=== PATIENT | female | born 1970 | race Caucasian/White ===

== ENCOUNTER 2016-10-07 10:53 | Day surgery (SDC) | payer BC, MEDICAID ==
[~2016-10-07 10:53] MED LIST: Dexamethasone 4 MG/ML SDV ONE; Midazolam 1 MG/ML 2 ML SDV ONE; Neostigmine Methylsulfate 1 MG/ML 5 ML Syringe ONE; Ondansetron 4 MG/2 ML SDV ONE; Propofol 200 MG/20 ML SDV ONE; Rocuronium 50 MG/5 ML Vial ONE; Succinylcholine/Normal Saline 200 MG/10 ML Syringe ONE; fentaNYL 250 MCG/5 ML SDV ONE
[2016-10-07] MEDS ORDERED: Lidocaine 1% 50 ML MDV ONE (11:31)
[2016-10-07] MEDS ORDERED: Lactated Ringers 1,000 ML IV SCH (12:15)
--- NOTE | 2016-10-07 13:32 | PCM.PRNOTE ---
- Free Text/Narrative Note: procedure 1. D&C 2. cervical block preop and post op endometrial thickening Attending Dr. Sheridan Findings Anteverted uterus about 8 weeks mild prolapse, cystocele EMC to pathology EBL minimal complications none Description Patient was placed in dorsal lithotomy after sedation she was preped and draped in sterile fashion, sterile speculum introduced and cervix visualized, cervical block performed with 1% lidocaine, cervical dilation was performed using the cervical dilators successfully, to note that the rectal small dilator was use at the beginning due to cervical stenosis, then sharp curettage performed no complications, adequate hemostasis patient transfered to
[2016-10-07] MEDS ORDERED: Silver Nitrate Applicator Each TOP ONE (14:00)
[2016-10-07 14:41] VITALS: BP 114/66
== END 2016-10-07 14:55 | disposition home or self-care (01) ==
LOC: JP.SDS 10:53
PROVIDERS: ATTEND Obstetrics & Gynecology
DX: N85.00 Endometrial hyperplasia, unspecified (principal); N83.202 Unspecified ovarian cyst, left side; Z80.41 Family history of malignant neoplasm of ovary; Z80.49 Family history of malignant neoplasm of other genital organs; Z90.49 Acquired absence of other specified parts of digestive tract; Z98.51 Tubal ligation status; Z98.890 Other specified postprocedural states; Z79.899 Other long term (current) drug therapy; Z87.891 Personal history of nicotine dependence; Z88.8 Allergy status to other drugs, medicaments and biological substances; Z88.2 Allergy status to sulfonamides; Z91.048 Other nonmedicinal substance allergy status
CPT/HCPCS: 36415; 58120; 85027; 86850; 86900; 86901; J2250; J2704; J3010; J7120; 88305; J1100; J2405

== ENCOUNTER 2016-12-09 04:37 | Emergency (ER) | payer BC, MEDICAID ==
[2016-12-09 04:52] VITALS: BP 117/66
[2016-12-09] MEDS ORDERED: Ketorolac 60 MG/2 ML SDV IM ONE (05:32)
[2016-12-09] MEDS ORDERED: Ondansetron 4 MG Tab.DIS PO ONE (05:32)
--- NOTE | 2016-12-09 06:07 | EDM.PDOC ---
<Jony Dang - Last Filed: 12/09/16 06:59> ED HPI GENERAL MEDICAL PROBLEM - General Chief Complaint: General Stated Complaint: NOT FEELING WELL Time Seen by Provider: 12/09/16 05:00 Source of Information: Reports: Patient History Limitations: Reports: No Limitations - History of Present Illness INITIAL COMMENTS - FREE TEXT/NARRATIVE: 46-year-old female who is 4 days postoperative from a total hysterectomy done laparoscopically was doing well the first 24-36 hours after surgery but has had several episodes of discomfort, malaise, lightheadedness, and this morning woke up at 3:30 very nauseous and having increased pelvic back and leg pain. She was just feeling "awful" with some chills so decided to come in. No shortness of breath. Her chief complaint was aching all over, particularly in her lower abdomen buttocks and back of her legs. No vomiting. Onset: Other (Waxing and waning) Quality: Reports: Ache Severity: Moderate Associated Symptoms: Reports: Fever/Chills, Malaise, Nausea/Vomiting, Other ( Dizziness with standing). Denies: Chest Pain, Cough, Diaphoresis, Shortness of Breath Generalized Pain Score (Numeric/FACES): 4 - Related Data Allergies Allergy/AdvReac Type Severity Reaction Status Date / Time azithromycin [From Zithromax] Allergy Cannot Verified 12/09/16 04:52 Remember erythromycin base Allergy Vomiting Verified 12/09/16 04:52 Sulfa (Sulfonamide Allergy Vaginitis Verified 12/09/16 04:52 Antibiotics) many outside allergies Allergy Difficulty Uncoded 12/09/16 04:52 Breathing Home Meds: Home Meds Fluconazole in NaCl,Iso-Osm [Fluconazole-Ns 200 mg/100 ml] 1 sprays INH BID 11/25 [History] Montelukast [Singulair] 10 mg CHEW BEDTIME 05/19/14 [History] Pseudoephedrine [Sudafed 12 Hour] 120 mg PO Q12H 05/19/14 [History] Cetirizine HCl [Zyrtec] 10 mg PO DAILY 06/06/14 [History] Multivitamin [Multi-Vitamin Daily] 1 tab PO DAILY 06/06/14 [History] Hydrocodone/Acetaminophen [Hydrocodon-Acetaminophen 5-325] 1 tab PO Q4H PRN 07/30 [History] Omeprazole 20 mg PO DAILY 12/14/15 [History] Ibuprofen [Motrin] 800 mg PO Q6H PRN 10/05/16 [History] Tretinoin [Retin-A] 1 applic TP BEDTIME 10/05/16 [History] Past Medical History - Past Health History Medical/Surgical History: Denies Medical/Surgical History HEENT History: Reports: Impaired Vision, Sinusitis, Other (See Below) Other HEENT History: environmental--seeds,grasses trees pets etc Respiratory History: Reports: Other (See Below) Other Respiratory History: Environmental allergies Gastrointestinal History: Reports: GERD ANTHROPOLOGIST History: Reports: , Other (See Below) Other OB/BYN History: thickened endometrial lining. ovarian cyst Neurological History: Reports: Migraines Dermatologic History: Reports: Other (See Below) Other Dermatologic History: mole removed chest and back - Infectious Disease History Infectious Disease History: Reports: Chicken Pox, Measles - Past Surgical History HEENT Surgical History: Reports: Oral Surgery, Tonsillectomy Female Surgical History: Reports: Hysterectomy, Oophorectomy Social & Family History - Family History OBGYN: Reports: Other (See Below) Other OBGYN Family History: ovaarian ca- mother - Tobacco Use Smoking Status *Q: Never Smoker Years of Tobacco use: 5 Packs/Tins Daily: 0.5 Used Tobacco, but Quit: No Second Hand Smoke Exposure: No - Caffeine Use Caffeine Use: Reports: Coffee, Soda, Tea - Alcohol Use Days Per Week of Alcohol Use: 0 Number of Drinks Per Day: 1 Total Drinks Per Week: 0 - Recreational Drug Use Recreational Drug Use: No ED ROS GENERAL - Review of Systems Review Of Systems: See Below Constitutional: Reports: Fever, Chills, Malaise HEENT: Reports: No Symptoms Respiratory: Reports: No Symptoms Cardiovascular: Reports: Lightheadedness GI/Abdominal: Reports: Abdominal Pain, Nausea. Denies: Diarrhea, Vomiting : Reports: Other (Pain intermittently radiates to the vagina) Musculoskeletal: Reports: Muscle Pain Skin: Reports: No Symptoms Neurological: Reports: Dizziness. Denies: Headache Psychiatric: Reports: No Symptoms ED EXAM, GENERAL - Physical Exam Exam: See Below Exam Limited By: No Limitations General Appearance: Alert, Anxious, Mild Distress (Looks very uncomfortable) Eye Exam: Bilateral Eye: EOMI Respiratory/Chest: No Respiratory Distress Cardiovascular: Regular Rate, Rhythm GI/Abdominal: Normal Bowel Sounds, Soft, Tender (Even light palpation causes significant tenderness across her lower abdomen) Extremities: No: Pedal Edema Neurological: Alert, Oriented, No Motor/Sensory Deficits Psychiatric: Normal Affect, Normal Mood Skin Exam: Warm, Dry, Other (Incisions look excellent) Course - Vital Signs Last Recorded V/S: Last Vital Signs Temp 37.6 C 12/09/16 06:02 Pulse 104 H 12/09/16 04:51 Resp 16 12/09/16 04:51 BP 117/66 12/09/16 04:51 Pulse Ox 0 L 12/09/16 04:51 - Orders/Labs/Meds Orders: Active Orders 24 hr Category Date Time Status Abdomen Pelvis w Cont [CT] Stat Exams 12/09/16 06:22 Taken CULTURE URINE [RM] Stat Lab 12/09/16 10:03 Uncollected Iohexol [Omnipaque-300] Med 12/09/16 07:15 Active 10 ml PO . DIRECTED Medication Orders Iohexol (Omnipaque-300) 10 ml PO . DIRECTED PATT Last Admin: 12/09/16 07:12 Dose: 10 ml Labs: Laboratory Tests 12/09/16 12/09/16 12/09/16 Range/Units 05:56 05:56 09:45 WBC 22.7 H (4.5-11.0) K/uL RBC 4.55 (3.30-5.50) M/uL Hgb 13.8 (12.0-15.0) g/dL Hct 41.5 (36.0-48.0) % MCV 91 (80-98) fL MCH 30 (27-31) pg MCHC 33 (32-36) % Plt Count 269 (150-400) K/uL Neut % (Auto) 86 H (36-66) % Lymph % (Auto) 6 L (24-44) % [place] % (Auto) 8 H (2-6) % Eos % (Auto) 1 L (2-4) % Baso % (Auto) 0 (0-1) % Sodium 139 L (140-148) mmol/L Potassium 4.5 (3.6-5.2) mmol/L Chloride 104 (100-108) mmol/L Carbon Dioxide 31 (21-32) mmol/L Anion Gap 8.5 (5.0-14.0) mmol/L BUN 16 (7-18) mg/dL Creatinine 1.0 (0.6-1.0) mg/dL Est Cr Clr Drug Dosing 65.22 mL/min Estimated GFR (MDRD) 60 (>60) Glucose 106 (74-106) mg/dL Calcium 8.9 (8.5-10.1) mg/dL Urine Color Yellow Urine Appearance Clear Urine pH 7.0 (4.5-8.0) Ur Specific [place] 1.005 L (1.008-1.030) Urine Protein Negative (NEGATIVE) mg/dL Urine Glucose (UA) Normal (NEGATIVE) mg/dL Urine Ketones Negative (NEGATIVE) mg/dL Urine Occult Blood Moderate (NEGATIVE) Urine Nitrite Negative (NEGATIVE) Urine Bilirubin Negative (NEGATIVE) Urine Urobilinogen Normal (NORMAL) mg/dL Ur Leukocyte Esterase Moderate (NEGATIVE) Urine RBC 0-5 (0-5) Urine WBC 5-10 H (0-5) Ur Epithelial Cells Few Amorphous Sediment Not seen Urine Bacteria Rare Urine Mucus Not seen Meds: Medications Generic Name Dose Route Start Last Admin Trade Name Freq PRN Reason Stop Dose Admin Iohexol 10 ml 12/09/16 07:15 12/09/16 07:12 Omnipaque-300 PO 10 ml . DIRECTED PATT Administration Discontinued Medications Generic Name Dose Route Start Last Admin Trade Name Freq PRN Reason Stop Dose Admin Sodium Chloride 70 mls @ 3 mls/sec 12/09/16 06:40 12/09/16 08:23 Normal Saline IV 12/09/16 06:41 3 mls/sec ASDIRECTED ONE Administration Ciprofloxacin/Dextrose 400 mg/ 200 mls @ 200 mls/hr 12/09/16 06:54 12/09/16 07:13 Premix IV 12/09/16 07:53 200 mls/hr ONETIME ONE Administration Metronidazole 500 mg/ Premix 100 mls @ 100 mls/hr 12/09/16 06:55 12/09/16 08: 28 IV 12/09/16 07:54 100 mls/hr ONETIME ONE Administration Iohexol 30 ml 12/09/16 06:55 12/09/16 09:28 Omnipaque PO 12/09/16 06:56 Not Given ONETIME ONE Iopamidol 100 ml 12/09/16 06:40 12/09/16 08:21 Isovue-300 (61%) IV 12/09/16 06:41 100 ml . DIRECTED PRN Administration RADIOLOGY EXAM Ketorolac Tromethamine 60 mg 12/09/16 05:32 12/09/16 05:38 Toradol IM 12/09/16 05:33 60 mg ONETIME ONE Administration Ondansetron HCl 4 mg 12/09/16 05:32 12/09/16 05:39 Zofran Odt PO 12/09/16 05:33 4 mg ONETIME ONE Administration Sodium Chloride 10 ml 12/09/16 06:40 12/09/16 08:23 Saline Flush FLUSH 12/09/16 06:41 10 ml . DIRECTED PRN Administration [id number] EXAM - Re-Assessments/Exams Free Text/Narrative Re-Assessment/Exam: 12/09/16 06:06 Patient was given 60 mg of Toradol IM and 4 mg of sublingual Zofran. A flat and upright x-ray of the abdomen along with CBC and BMP were obtained. After returning from x-ray the patient again felt chilled so a temperature was retaken and it was 99.6. 12/09/16 06:36 White blood count cell count was 22,700, hemoglobin normal, chemistry profile normal. Her case was discussed with her surgeon, and a CT of the abdomen with IV contrast was recommended. 12/09/16 06:59 Dr. Barrow, the patient's surgeon called and requested oral contrast and starting IV Cipro and IV Flagyl. These were ordered and the care was turned over to Dr. Salazar. Departure - Departure Disposition: Home, Self-Care 01 Clinical Impression: Status post hysterectomy with oophorectomy, Elevated WBC count - Discharge Information Forms: ED Department Discharge Care Plan Goals: keep appt for follow up, cipro 500mg bid, flagyl 500m tid. rtc if increased problems. Push fluids, will notify of urine culture. - My Orders Last 24 Hours: My Active Orders 12/09/16 10:03 CULTURE URINE [RM] Stat - Assessment/Plan Last 24 Hours: My Active Orders 12/09/16 10:03 CULTURE URINE [RM] Stat <Kendra Salazar - Last Filed: 12/09/16 10:07> Course - Re-Assessments/Exams Free Text/Narrative Re-Assessment/Exam: 12/09/16 10:03 cat scan was neg for acute findings. Her urine had some wbcs but not alot of bacteria. A culture was set up. Her [employer] teacher saw the pt and wanted her to be on cipro and flagyl. He will see her Wednesday. Departure - Departure Time of Disposition: 10:05 Condition: Fair
[2016-12-09] MEDS ORDERED: Sodium Chloride 0.9% 10 ML Syringe FLUSH PRN (06:40)
[2016-12-09] MEDS ORDERED: Iopamidol 612 MG/ML 100 ML Bottle IV PRN (06:40)
[2016-12-09] MEDS ORDERED: Ciprofloxacin in D5W 400 MG in Premix Bag 1 BAG IV ONE ×2 (06:54)
[2016-12-09] MEDS ORDERED: Iohexol 300 MG/ML 30 ML Bottle PO ONE (06:55)
[2016-12-09] MEDS ORDERED: metroNIDAZOLE/Normal Saline 500 MG in Premix Bag 1 BAG IV ONE (06:55)
[2016-12-09] MEDS ORDERED: Iohexol 647 MG/ML 10 ML SDV PO SCH (07:15)
--- NOTE | 2016-12-09 09:13 | CR ---
Abdomen 2V AP Flat Upright HISTORY: Postop pain, fever. COMPARISON: None FINDINGS: The bowel gas pattern nonobstructive. Vascular calcification left hemipelvis. No free air. Scattered stool throughout nondilated colon. Impression: No evidence for acute abdominal process.
--- NOTE | 2016-12-09 11:20 | EDM.PDOC ---
ED HPI GENERAL MEDICAL PROBLEM - General Chief Complaint: General Stated Complaint: NOT FEELING WELL Time Seen by Provider: 12/09/16 10:00 Source of Information: Reports: Patient History Limitations: Reports: No Limitations - History of Present Illness INITIAL COMMENTS - FREE TEXT/NARRATIVE: 46-year-old female who is 4 days postoperative from a total hysterectomy done laparoscopically was doing well the first 24-36 hours after surgery but has had several episodes of discomfort, malaise, lightheadedness, and this morning woke up at 3:30 very nauseous and having increased pelvic back and leg pain. She was just feeling "awful" with some chills so decided to come in. No shortness of breath. Her chief complaint was aching all over, particularly in her lower abdomen buttocks and back of her legs. No vomiting. Onset: Today (at 2 am), Other (Waxing and waning) Duration: Day(s): (1 day), Constant Location: Reports: Abdomen Quality: Reports: Ache Severity: Moderate Improves with: Reports: None Worsens with: Reports: None Context: Reports: Lifting Associated Symptoms: Reports: Fever/Chills, Malaise, Nausea/Vomiting, Other ( Dizziness with standing). Denies: Chest Pain, Cough, Diaphoresis, Shortness of Breath Treatments SUPERVISOR BRINE: Reports: Acetaminophen Generalized Pain Score (Numeric/FACES): 2 - Related Data Allergies Allergy/AdvReac Type Severity Reaction Status Date / Time azithromycin [From Zithromax] Allergy Cannot Verified 12/09/16 04:52 Remember erythromycin base Allergy Vomiting Verified 12/09/16 04:52 Sulfa (Sulfonamide Allergy Vaginitis Verified 12/09/16 04:52 Antibiotics) many outside allergies Allergy Difficulty Uncoded 12/09/16 04:52 Breathing Home Meds: Home Meds Fluconazole in NaCl,Iso-Osm [Fluconazole-Ns 200 mg/100 ml] 1 sprays INH BID 11/25 [History] Montelukast [Singulair] 10 mg CHEW BEDTIME 05/19/14 [History] Pseudoephedrine [Sudafed 12 Hour] 120 mg PO Q12H 05/19/14 [History] Cetirizine HCl [Zyrtec] 10 mg PO DAILY 06/06/14 [History] Multivitamin [Multi-Vitamin Daily] 1 tab PO DAILY 06/06/14 [History] Hydrocodone/Acetaminophen [Hydrocodon-Acetaminophen 5-325] 1 tab PO Q4H PRN 07/30 [History] Omeprazole 20 mg PO DAILY 12/14/15 [History] Ibuprofen [Motrin] 800 mg PO Q6H PRN 10/05/16 [History] Tretinoin [Retin-A] 1 applic TP BEDTIME 10/05/16 [History] Past Medical History - Past Health History Medical/Surgical History: Denies Medical/Surgical History HEENT History: Reports: Impaired Vision, Sinusitis, Other (See Below) Other HEENT History: environmental--seeds,grasses trees pets etc Respiratory History: Reports: Other (See Below) Other Respiratory History: Environmental allergies Gastrointestinal History: Reports: GERD METER INSPECTOR History: Reports: , Other (See Below) Other OB/BYN History: thickened endometrial lining. ovarian cyst Neurological History: Reports: Migraines Dermatologic History: Reports: Other (See Below) Other Dermatologic History: mole removed chest and back - Infectious Disease History Infectious Disease History: Reports: Chicken Pox, Measles - Past Surgical History HEENT Surgical History: Reports: Oral Surgery, Tonsillectomy Female Surgical History: Reports: Hysterectomy, Oophorectomy Social & Family History - Family History OBGYN: Reports: Other (See Below) Other OBGYN Family History: ovaarian ca- mother - Tobacco Use Smoking Status *Q: Never Smoker Years of Tobacco use: 5 Packs/Tins Daily: 0.5 Used Tobacco, but Quit: No Second Hand Smoke Exposure: No - Caffeine Use Caffeine Use: Reports: Coffee, Soda, Tea - Alcohol Use Days Per Week of Alcohol Use: 0 Number of Drinks Per Day: 1 Total Drinks Per Week: 0 - Recreational Drug Use Recreational Drug Use: No ED ROS GENERAL - Review of Systems Review Of Systems: See Below ED EXAM, GENERAL - Physical Exam Exam: See Below Free Text/Narrative:: 46-year-old female who is 4 days postoperative from a total hysterectomy done laparoscopically was doing well the first 24-36 hours after surgery but has had several episodes of discomfort, malaise, lightheadedness, and this morning woke up at 3:30 very nauseous and having increased pelvic back and leg pain. She was just feeling "awful" with some chills so decided to come in. No shortness of breath. Her chief complaint was aching all over, particularly in her lower abdomen buttocks and back of her legs. No vomiting. Exam Limited By: No Limitations General Appearance: Alert, Anxious, Mild Distress (Looks very uncomfortable) Respiratory/Chest: No Respiratory Distress Cardiovascular: Regular Rate, Rhythm GI/Abdominal: Normal Bowel Sounds, Soft, Tender (Even light palpation causes significant tenderness across her lower abdomen), Other (at my examination patient resting comfortable in no distress, well healed incisions, no rebound ) Extremities: No: Pedal Edema Neurological: Alert, Oriented, No Motor/Sensory Deficits Psychiatric: Normal Affect, Normal Mood Skin Exam: Warm, Dry, Other (Incisions look excellent) Lymphatic: No Adenopathy Course - Vital Signs Last Recorded V/S: Last Vital Signs Temp 37.6 C 12/09/16 06:02 Pulse 104 H 12/09/16 04:51 Resp 16 12/09/16 04:51 BP 117/66 12/09/16 04:51 Pulse Ox 0 L 12/09/16 04:51 - Orders/Labs/Meds Labs: Laboratory Tests 12/09/16 12/09/16 12/09/16 Range/Units 05:56 05:56 09:45 WBC 22.7 H (4.5-11.0) K/uL RBC 4.55 (3.30-5.50) M/uL Hgb 13.8 (12.0-15.0) g/dL Hct 41.5 (36.0-48.0) % MCV 91 (80-98) fL MCH 30 (27-31) pg MCHC 33 (32-36) % Plt Count 269 (150-400) K/uL Neut % (Auto) 86 H (36-66) % Lymph % (Auto) 6 L (24-44) % [place] % (Auto) 8 H (2-6) % Eos % (Auto) 1 L (2-4) % Baso % (Auto) 0 (0-1) % Sodium 139 L (140-148) mmol/L Potassium 4.5 (3.6-5.2) mmol/L Chloride 104 (100-108) mmol/L Carbon Dioxide 31 (21-32) mmol/L Anion Gap 8.5 (5.0-14.0) mmol/L BUN 16 (7-18) mg/dL Creatinine 1.0 (0.6-1.0) mg/dL Est Cr Clr Drug Dosing 65.22 mL/min Estimated GFR (MDRD) 60 (>60) Glucose 106 (74-106) mg/dL Calcium 8.9 (8.5-10.1) mg/dL Urine Color Yellow Urine Appearance Clear Urine pH 7.0 (4.5-8.0) Ur Specific [place] 1.005 L (1.008-1.030) Urine Protein Negative (NEGATIVE) mg/dL Urine Glucose (UA) Normal (NEGATIVE) mg/dL Urine Ketones Negative (NEGATIVE) mg/dL Urine Occult Blood Moderate (NEGATIVE) Urine Nitrite Negative (NEGATIVE) Urine Bilirubin Negative (NEGATIVE) Urine Urobilinogen Normal (NORMAL) mg/dL Ur Leukocyte Esterase Moderate (NEGATIVE) Urine RBC 0-5 (0-5) Urine WBC 5-10 H (0-5) Ur Epithelial Cells Few Amorphous Sediment Not seen Urine Bacteria Rare Urine Mucus Not seen Meds: Medications Discontinued Medications Generic Name Dose Route Start Last Admin Trade Name Freq PRN Reason Stop Dose Admin Sodium Chloride 70 mls @ 3 mls/sec 12/09/16 06:40 12/09/16 08:23 Normal Saline IV 12/09/16 06:41 3 mls/sec ASDIRECTED ONE Administration Ciprofloxacin/Dextrose 400 mg/ 200 mls @ 200 mls/hr 12/09/16 06:54 12/09/16 07:13 Premix IV 12/09/16 07:53 200 mls/hr ONETIME ONE Administration Metronidazole 500 mg/ Premix 100 mls @ 100 mls/hr 12/09/16 06:55 12/09/16 08: 28 IV 12/09/16 07:54 100 mls/hr ONETIME ONE Administration Iohexol 30 ml 12/09/16 06:55 12/09/16 09:28 Omnipaque PO 12/09/16 06:56 Not Given ONETIME ONE Iohexol 10 ml 12/09/16 07:15 12/09/16 07:12 Omnipaque-300 PO 10 ml . DIRECTED PATT Administration Iopamidol 100 ml 12/09/16 06:40 12/09/16 08:21 Isovue-300 (61%) IV 12/09/16 06:41 100 ml . DIRECTED PRN Administration RADIOLOGY EXAM Ketorolac Tromethamine 60 mg 12/09/16 05:32 12/09/16 05:38 Toradol IM 12/09/16 05:33 60 mg ONETIME ONE Administration Ondansetron HCl 4 mg 12/09/16 05:32 12/09/16 05:39 Zofran Odt PO 12/09/16 05:33 4 mg ONETIME ONE Administration Sodium Chloride 10 ml 12/09/16 06:40 12/09/16 08:23 Saline Flush FLUSH 12/09/16 06:41 10 ml . DIRECTED PRN Administration [id number] EXAM Departure - Departure Time of Disposition: 10:17 Disposition: Home, Self-Care 01 Condition: Fair Clinical Impression: Status post hysterectomy with oophorectomy, Elevated WBC count - Discharge Information Referrals: PCP,None [Primary Care Provider] - Forms: ED Department Discharge Care Plan Goals: keep appt for follow up, cipro 500mg bid, flagyl 500m tid. rtc if increased problems. Push fluids, will notify of urine culture. 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
== END 2016-12-09 10:17 | disposition home or self-care (01) ==
LOC: JP.ED 04:37
DX: G89.18 Other acute postprocedural pain (principal); R10.30 Lower abdominal pain, unspecified; D72.829 Elevated white blood cell count, unspecified; K21.9 Gastro-esophageal reflux disease without esophagitis; G43.909 Migraine, unspecified, not intractable, without status migrainosus; Z90.710 Acquired absence of both cervix and uterus; Z90.721 Acquired absence of ovaries, unilateral; Z79.899 Other long term (current) drug therapy; Z88.2 Allergy status to sulfonamides; Z88.1 Allergy status to other antibiotic agents; Z91.09 Other allergy status, other than to drugs and biological substances
CPT/HCPCS: 36415; 74020; 74177; 80048; 81001; 85025; 87086; 96365; 96368; 96372; 99284; A9270; J0744; J1885; J7030; J7050; Q9967

== ENCOUNTER 2017-09-30 18:23 | Emergency (ER) | payer OTHER, MEDICAID ==
[2017-09-30 18:53] VITALS: BP 138/83
--- NOTE | 2017-09-30 19:16 | EDM.PDOC ---
ED HPI GENERAL MEDICAL PROBLEM - General Chief Complaint: Genitourinary Problem Stated Complaint: BLADDER PAIN AND SPOTTING Time Seen by Provider: 09/30/17 19:00 Source of Information: Reports: Patient History Limitations: Reports: No Limitations - History of Present Illness INITIAL COMMENTS - FREE TEXT/NARRATIVE: 46-year-old female with dysuria and a small amount of blood in her urine for the past hour and a half. She feels a lower abdominal pressure. No fever or chills, no significant back pain. She has a history of a total hysterectomy. Onset: Sudden (Started rather suddenly an hour and a half ago) Severity: Mild Worsens with: Reports: Other (Urinating) Associated Symptoms: Denies: Fever/Chills, Loss of Appetite, Malaise, Nausea/ Vomiting Pelvic Pain Score (Numeric/FACES): 3 - Related Data Allergies Allergy/AdvReac Type Severity Reaction Status Date / Time azithromycin [From Zithromax] Allergy Cannot Verified 12/09/16 04:52 Remember erythromycin base Allergy Vomiting Verified 12/09/16 04:52 Sulfa (Sulfonamide Allergy Vaginitis Verified 12/09/16 04:52 Antibiotics) many outside allergies Allergy Difficulty Uncoded 12/09/16 04:52 Breathing Home Meds: Home Meds Fluconazole in NaCl,Iso-Osm [Fluconazole-Ns 200 mg/100 ml] 1 sprays INH BID 11/25 [History] Montelukast [Singulair] 10 mg CHEW BEDTIME 05/19/14 [History] Pseudoephedrine [Sudafed 12 Hour] 120 mg PO Q12H 05/19/14 [History] Cetirizine HCl [Zyrtec] 10 mg PO DAILY 06/06/14 [History] Multivitamin [Multi-Vitamin Daily] 1 tab PO DAILY 06/06/14 [History] Hydrocodone/Acetaminophen [Hydrocodon-Acetaminophen 5-325] 1 tab PO Q4H PRN 07/30 [History] Omeprazole 20 mg PO DAILY 12/14/15 [History] Ibuprofen [Motrin] 800 mg PO Q6H PRN 10/05/16 [History] Tretinoin [Retin-A] 1 applic TP BEDTIME 10/05/16 [History] Past Medical History - Past Health History Medical/Surgical History: Denies Medical/Surgical History HEENT History: Reports: Impaired Vision, Sinusitis, Other (See Below) Other HEENT History: environmental--seeds,grasses trees pets etc Respiratory History: Reports: Other (See Below) Other Respiratory History: Environmental allergies Gastrointestinal History: Reports: GERD CITRI[employer] LEAD History: Reports: , Other (See Below) Other OB/BYN History: thickened endometrial lining. ovarian cyst Neurological History: Reports: Migraines Dermatologic History: Reports: Other (See Below) Other Dermatologic History: mole removed chest and back - Infectious Disease History Infectious Disease History: Reports: Chicken Pox - Past Surgical History HEENT Surgical History: Reports: Oral Surgery, Tonsillectomy Female Surgical History: Reports: Hysterectomy, Oophorectomy Social & Family History - Family History OBGYN: Reports: Other (See Below) Other OBGYN Family History: ovaarian ca- mother - Tobacco Use Smoking Status *Q: Former Smoker Years of Tobacco use: 5 Packs/Tins Daily: 0.5 Used Tobacco, but Quit: No Second Hand Smoke Exposure: No - Caffeine Use Caffeine Use: Reports: Coffee, Soda, Tea - Alcohol Use Days Per Week of Alcohol Use: 0 Number of Drinks Per Day: 1 Total Drinks Per Week: 0 - Recreational Drug Use Recreational Drug Use: No ED ROS GENERAL - Review of Systems Review Of Systems: See Below Constitutional: Denies: Fever, Chills Respiratory: Denies: Shortness of Breath Cardiovascular: Denies: Chest Pain GI/Abdominal: Reports: Abdominal Pain. Denies: Nausea, Vomiting : Reports: Dysuria, Hematuria, Urgency Skin: Reports: No Symptoms Neurological: Denies: Headache Psychiatric: Reports: No Symptoms ED EXAM, RENAL/ - Physical Exam Exam: See Below Exam Limited By: No Limitations General Appearance: Alert, No Apparent Distress Respiratory/Chest: No Respiratory Distress GI/Abdominal: Tender (Does react with tenderness to palpation across the lower abdomen. No focal tenderness or guarding.) Course - Vital Signs Last Recorded V/S: Last Vital Signs Temp 97.7 F 09/30/17 18:51 Pulse 108 H 09/30/17 18:51 Resp 16 09/30/17 18:51 BP 138/83 09/30/17 18:51 Pulse Ox 97 09/30/17 18:51 - Orders/Labs/Meds Orders: Active Orders 24 hr Category Date Time Status CULTURE URINE [RM] Stat Lab 09/30/17 19:30 Received UA W/MICROSCOPIC [URIN] Urgent Lab 09/30/17 19:24 Ordered Labs: Laboratory Tests 09/30/17 Range/Units 19:24 Urine Color Yellow Urine Appearance Cloudy Urine pH 5.0 (4.5-8.0) Ur Specific [place] 1.030 (1.008-1.030) Urine Protein 30 H (NEGATIVE) mg/dL Urine Glucose (UA) Normal (NEGATIVE) mg/dL Urine Ketones Negative (NEGATIVE) mg/dL Urine Occult Blood Large (NEGATIVE) Urine Nitrite Negative (NEGATIVE) Urine Bilirubin Negative (NEGATIVE) Urine Urobilinogen Normal (NORMAL) mg/dL Ur Leukocyte Esterase Large (NEGATIVE) Urine RBC Semi-packed H (0-5) Urine WBC Semi-packed H (0-5) Ur Epithelial Cells Few Amorphous Sediment Not seen Urine Bacteria Many Urine Mucus Not seen - Re-Assessments/Exams Free Text/Narrative Re-Assessment/Exam: 09/30/17 19:16 A UA was obtained. 09/30/17 19:55 UA is strongly positive with many bacteria, packed WBCs and RBCs. A urine culture was initiated and the patient was started on Cipro 500 mg twice daily for 5 days, and can return if worsening despite treatment. Departure - Departure Time of Disposition: 20:10 Disposition: Home, Self-Care 01 Condition: Good Clinical Impression: UTI, Urinary tract infectious disease - Discharge Information Instructions: Urinary Tract Infection, Adult, [id number] Referrals: PCP,None [Primary Care Provider] - Forms: ED Department Discharge Care Plan Goals: Take antibiotic twice daily for the next 5 days, drink lots of fluids and increase activity as tolerated. Return if worsening despite treatment. - My Orders Last 24 Hours: My Active Orders 09/30/17 19:24 UA W/MICROSCOPIC [URIN] Urgent 09/30/17 19:30 CULTURE URINE [RM] Stat - Assessment/Plan Last 24 Hours: My Active Orders 09/30/17 19:24 UA W/MICROSCOPIC [URIN] Urgent 09/30/17 19:30 CULTURE URINE [RM] Stat
== END 2017-09-30 20:11 | disposition home or self-care (01) ==
LOC: JP.ED 18:23
DX: N39.0 Urinary tract infection, site not specified (principal); Z88.1 Allergy status to other antibiotic agents; Z88.2 Allergy status to sulfonamides; Z79.899 Other long term (current) drug therapy; Z87.891 Personal history of nicotine dependence
CPT/HCPCS: 81001; 87086; 99284

== ENCOUNTER 2018-10-08 19:52 | Emergency (ER) | payer OTHER, MEDICAID ==
--- NOTE | 2018-10-08 20:44 | EDM.PDOC ---
ED HPI GENERAL MEDICAL PROBLEM - General Chief Complaint: Genitourinary Problem Stated Complaint: BLADDER INFECTION Time Seen by Provider: 10/08/18 20:01 Source of Information: Reports: Patient History Limitations: Reports: No Limitations - History of Present Illness INITIAL COMMENTS - FREE TEXT/NARRATIVE: Chief complaint: bladder infection This is a 47 year old female present to ER with concerns of bladder infection. She reports woke up this morning, had a low back pain, thought she may of slept wrong, then at the day progressed develops bladder spasms, pain and frequency. Overall just not feeling well. Similar to previous bladder infections denies any fever, chills, nausea, vomiting, diarrhea or rash. past history of recurrent bladder infections. - Related Data Allergies Allergy/AdvReac Type Severity Reaction Status Date / Time azithromycin [From Zithromax] Allergy Cannot Verified 01/07/18 21:53 Remember erythromycin base Allergy Vomiting Verified 01/07/18 21:53 Sulfa (Sulfonamide Allergy Vaginitis Verified 01/07/18 21:53 Antibiotics) many outside allergies Allergy Difficulty Uncoded 01/07/18 21:53 Breathing Home Meds: Home Meds Fluconazole in NaCl,Iso-Osm [Fluconazole-Ns 200 mg/100 ml] 1 sprays INH BID 11/25 [History] Montelukast [Singulair] 10 mg CHEW BEDTIME 05/19/14 [History] Pseudoephedrine [Sudafed 12 Hour] 120 mg PO Q12H 05/19/14 [History] Cetirizine HCl [Zyrtec] 10 mg PO DAILY 06/06/14 [History] Multivitamin [Multi-Vitamin Daily] 1 tab PO DAILY 06/06/14 [History] Omeprazole 20 mg PO DAILY 12/14/15 [History] Tretinoin [Retin-A] 1 applic TP BEDTIME 10/05/16 [History] Past Medical History - Past Health History Medical/Surgical History: Denies Medical/Surgical History HEENT History: Reports: Impaired Vision, Sinusitis, Other (See Below) Other HEENT History: environmental--seeds,grasses trees pets etc Respiratory History: Reports: Other (See Below) Other Respiratory History: Environmental allergies Gastrointestinal History: Reports: GERD Genitourinary History: Reports: UTI, Recurrent 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 ovarian cyst Neurological History: Reports: Migraines Dermatologic History: Reports: Other (See Below) Other Dermatologic History: mole removed chest and back - Infectious Disease History Infectious Disease History: Reports: Chicken Pox, Measles, Mumps - Past Surgical History HEENT Surgical History: Reports: Oral Surgery, Tonsillectomy Female Surgical History: Reports: Breast Reconstruction, Hysterectomy, Mastectomy, Oophorectomy Social & Family History - Family History OBGYN: Reports: Other (See Below) Other OBGYN Family History: ovaarian ca- mother - Caffeine Use Caffeine Use: Reports: Coffee ED ROS GENERAL - Review of Systems Review Of Systems: See Below Constitutional: Reports: Malaise, Decreased Appetite, Other (bladder pain, spasms, frequency) HEENT: Reports: No Symptoms Respiratory: Reports: No Symptoms Cardiovascular: Reports: No Symptoms Endocrine: Reports: No Symptoms GI/Abdominal: Reports: Abdominal Pain : Reports: Dysuria, Flank Pain (bilateral low back pain), Frequency, Pain, Urgency Musculoskeletal: Reports: Back Pain Skin: Reports: No Symptoms Neurological: Reports: No Symptoms Psychiatric: Reports: No Symptoms Hematologic/Lymphatic: Reports: No Symptoms Immunologic: Reports: No Symptoms ED EXAM, GI/ABD - Physical Exam Exam: See Below Exam Limited By: No Limitations General Appearance: Alert, WD/WN, No Apparent Distress Eyes: Bilateral: Normal Appearance Ears: Normal External Exam Nose: Normal Inspection Throat/Mouth: Normal Lips Head: Atraumatic, Normocephalic Neck: Normal Inspection, Supple, Non-Tender Respiratory/Chest: No Respiratory Distress, Lungs Clear, Normal Breath Sounds, Chest Non-Tender Cardiovascular: Regular Rate, Rhythm, No Murmur GI/Abdominal Exam: Normal Bowel Sounds, Soft, No Distention, No Mass, Other ( tenderness noted over bladder area). No: Guarding Back Exam: Normal Inspection, Full Range of Motion, CVA Tenderness (R), CVA Tenderness (L) Extremities: Normal Inspection, Normal Range of Motion Neurological: No Motor/Sensory Deficits Psychiatric: Normal Affect, Normal Mood Skin Exam: Warm, Dry, Intact, Normal Color, No Rash Lymphatic: No Adenopathy Course - Vital Signs Last Recorded V/S: Last Vital Signs Temp 36.6 C 10/08/18 20:45 Pulse 94 10/08/18 20:45 Resp 16 04/27/19 20:45 BP 118/81 10/08/18 20:45 Pulse Ox 99 10/08/18 20:45 - Orders/Labs/Meds Labs: Laboratory Tests 10/08/18 Range/Units 20:07 Urine Color Yellow Urine Appearance Slightly cloudy Urine pH 5.0 (4.5-8.0) Ur Specific [place] 1.025 (1.008-1.030) Urine Protein Negative (NEGATIVE) mg/dL Urine Glucose (UA) Normal (NEGATIVE) mg/dL Urine Ketones Negative (NEGATIVE) mg/dL Urine Occult Blood Trace (NEGATIVE) Urine Nitrite Negative (NEGATIVE) Urine Bilirubin Negative (NEGATIVE) Urine Urobilinogen Normal (NORMAL) mg/dL Ur Leukocyte Esterase Large (NEGATIVE) Urine RBC 5-10 H (0-5) Urine WBC 75-100 H (0-5) Ur Epithelial Cells Few Amorphous Sediment Not seen Urine Bacteria Many Urine Mucus Not seen - Re-Assessments/Exams Free Text/Narrative Re-Assessment/Exam: 10/08/18 21:07 will give dose of Phenazopyridine 190 mg for bladder pain and spasm will treat for acute bladder infection Patient agrees with plan of care. Departure - Departure Time of Disposition: 21:10 Disposition: Home, Self-Care 01 Condition: Good Clinical Impression: UTI, Urinary tract infectious disease, UTI (urinary tract infection) - Discharge Information *PRESCRIPTION DRUG MONITORING PROGRAM REVIEWED*: No *COPY OF PRESCRIPTION DRUG MONITORING REPORT IN PATIENT RONALDO: No Instructions: Urinary Tract Infection, Adult, [id number] Referrals: Delfino Oshea MD [Primary Care Provider] - Forms: ED Department Discharge Care Plan Goals: Bladder Infection -start antibiotic today, Cipro 500mg by mouth two times a day for 10 days -Pyridium 100 mg take one every 8 hours as needed for bladder pain and spasms -Difluconzole 150 mg po, take at the onset of yeast symptoms -push fluids, 8 to 10 glasses of water per day -take over the counter Tylenol or Motrin as directed -urine culture pending return to ER for any fever, chills, backache, nausea, vomiting, diarrhea, rash or not improving. - Problem List & Annotations (1) UTI, Urinary tract infectious disease SNOMED Code(s): 24512016 Code(s): N39.0 - URINARY TRACT INFECTION, SITE NOT SPECIFIED Status: Acute Priority: High Current Visit: Yes - Problem List Review Problem List Initiated/Reviewed/Updated: Yes - Assessment/Plan Plan: Bladder Infection -start antibiotic today, Cipro 500mg by mouth two times a day for 10 days -Pyridium 100 mg take one every 8 hours as needed for bladder pain and spasms -Difluconzole 150 mg po, take at the onset of yeast symptoms -push fluids, 8 to 10 glasses of water per day -take over the counter Tylenol or Motrin as directed -urine culture pending return to ER for any fever, chills, backache, nausea, vomiting, diarrhea, rash or not improving.
[2018-10-08 20:45] VITALS: BP 118/81
[2018-10-08] MEDS ORDERED: Phenazopyridine 95 MG Tab PO ONE (20:57)
== END 2018-10-08 21:13 | disposition home or self-care (01) ==
LOC: JP.ED 19:52
DX: N39.0 Urinary tract infection, site not specified (principal); Z98.890 Other specified postprocedural states; Z90.710 Acquired absence of both cervix and uterus; Z88.1 Allergy status to other antibiotic agents; Z88.2 Allergy status to sulfonamides
CPT/HCPCS: 81001; 99283; A9270

== ENCOUNTER 2019-05-28 14:08 | Emergency (ER) | payer MEDICAID, OTHER ==
[2019-05-28 14:23] VITALS: BP 121/75; PULSE 108
--- NOTE | 2019-05-28 14:49 | EDM.PDOC ---
ED HPI GENERAL MEDICAL PROBLEM - General Chief Complaint: Genitourinary Problem Stated Complaint: bladder infection Time Seen by Provider: 05/28/19 14:20 Source of Information: Reports: Patient History Limitations: Reports: No Limitations - History of Present Illness INITIAL COMMENTS - FREE TEXT/NARRATIVE: 48-year-old female with a history of UTIs, has had intense dysuria and urgency for the past 12 to 24 hours. No fever or flank pain. Very typical of her previous urinary tract infections. She took a dose of Pyridium at home. Onset: Gradual Duration: Hour(s): (12 hours) Location: Reports: Abdomen (Lower abdomen) Associated Symptoms: Denies: Chest Pain, Fever/Chills, Loss of Appetite, Nausea/ Vomiting, Shortness of Breath Bladder Pain Score (Numeric/FACES): 3 - Related Data Allergies Allergy/AdvReac Type Severity Reaction Status Date / Time azithromycin [From Zithromax] Allergy Cannot Verified 05/28/19 14:20 Remember erythromycin base Allergy Vomiting Verified 05/28/19 14:20 Sulfa (Sulfonamide Allergy Vaginitis Verified 05/28/19 14:20 Antibiotics) many outside allergies Allergy Difficulty Uncoded 05/28/19 14:20 Breathing Home Meds: Home Meds Fluconazole in NaCl,Iso-Osm [Fluconazole-Ns 200 mg/100 ml] 1 sprays INH BID 11/25 [History] Montelukast [Singulair] 10 mg CHEW BEDTIME 05/19/14 [History] Pseudoephedrine [Sudafed 12 Hour] 120 mg PO Q12H 05/19/14 [History] Cetirizine HCl [Zyrtec] 10 mg PO DAILY 06/06/14 [History] Multivitamin [Multi-Vitamin Daily] 1 tab PO DAILY 06/06/14 [History] Omeprazole 20 mg PO DAILY 12/14/15 [History] Tretinoin [Retin-A] 1 applic TP BEDTIME 10/05/16 [History] Fexofenadine/Pseudoephedrine [Tabitha-D 12 Hour] 1 tab PO Q6HR 05/28/19 [History ] Past Medical History - Past Health History Medical/Surgical History: Denies Medical/Surgical History HEENT History: Reports: Impaired Vision, Sinusitis, Other (See Below) Other HEENT History: environmental--seeds,grasses trees pets etc Respiratory History: Reports: Other (See Below) Other Respiratory History: Environmental allergies Gastrointestinal History: Reports: GERD Genitourinary History: Reports: UTI, Recurrent 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 ovarian cyst Neurological History: Reports: Migraines Dermatologic History: Reports: Other (See Below) Other Dermatologic History: mole removed chest and back - Infectious Disease History Infectious Disease History: Reports: Chicken Pox, Measles, Mumps - Past Surgical History Head Surgeries/Procedures: Reports: None HEENT Surgical History: Reports: Oral Surgery, Tonsillectomy Respiratory Surgical History: Reports: None GI Surgical History: Reports: Appendectomy Female Surgical History: Reports: Breast Reconstruction, Hysterectomy, Mastectomy, Oophorectomy Neurological Surgical History: Reports: None Dermatological Surgical History: Reports: Plastic Surgical Reconstruction/Repair Social & Family History - Family History OBGYN: Reports: Other (See Below) Other OBGYN Family History: ovaarian ca- mother - Tobacco Use Smoking Status *Q: Former Smoker Used Tobacco, but Quit: Yes Month/Year Tobacco Last Used: 1999 Second Hand Smoke Exposure: No - Caffeine Use Caffeine Use: Reports: Coffee - Recreational Drug Use Recreational Drug Use: No ED ROS GENERAL - Review of Systems Review Of Systems: See Below Constitutional: Denies: Fever, Chills HEENT: Reports: No Symptoms Respiratory: Denies: Shortness of Breath Cardiovascular: Denies: Chest Pain GI/Abdominal: Reports: Abdominal Pain (Lower abdomen, cramping and pressure) : Reports: Dysuria, Frequency, Urgency. Denies: Flank Pain Skin: Reports: No Symptoms Neurological: Reports: No Symptoms ED EXAM, RENAL/ - Physical Exam Exam: See Below Exam Limited By: No Limitations General Appearance: Alert, No Apparent Distress (Looks uncomfortable but not distressed) Head: Atraumatic Respiratory/Chest: No Respiratory Distress, Lungs Clear Cardiovascular: Regular Rate, Rhythm Back Exam: No: CVA Tenderness (R), CVA Tenderness (L) Neurological: Alert, Oriented Psychiatric: Anxious Course - Vital Signs Last Recorded V/S: Last Vital Signs Temp 98.5 F 05/28/19 14:23 Pulse 108 H 05/28/19 14:23 Resp 20 05/28/19 14:23 BP 121/75 05/28/19 14:23 Pulse Ox 98 05/28/19 14:23 - Orders/Labs/Meds Orders: Active Orders 24 hr Category Date Time Status CULTURE URINE [RM] Stat Lab 05/28/19 14:48 Received Labs: Laboratory Tests 05/28/19 Range/Units 14:34 Urine Color Yellow (YELLOW) Urine Appearance Slightly cloudy A (CLEAR) Urine pH 5.0 (5.0-8.0) Ur Specific [place] >= 1.030 (1.008-1.030) Urine Protein Negative (NEGATIVE) mg/dL Urine Glucose (UA) Negative (NEGATIVE) mg/dL Urine Ketones Negative (NEGATIVE) mg/dL Urine Occult Blood Moderate H (NEGATIVE) Urine Nitrite Negative (NEGATIVE) Urine Bilirubin Negative (NEGATIVE) Urine Urobilinogen 0.2 (0.2-1.0) EU/dL Ur Leukocyte Esterase Small H (NEGATIVE) Urine RBC >100 H (0-5) Urine WBC 30-40 H (0-5) Ur Epithelial Cells Moderate Amorphous Sediment Not seen Urine Bacteria Many Urine Mucus Few - Re-Assessments/Exams Free Text/Narrative Re-Assessment/Exam: 05/28/19 14:48 UA is markedly positive, many bacteria with RBCs and WBCs. A culture was initiated and she will be placed on Cipro 500 mg twice daily for 5 days. Recheck if not improving in 2 to 3 days, continue with Pyridium as needed. Departure - Departure Time of Disposition: 14:54 Disposition: Home, Self-Care 01 Clinical Impression: Cystitis - Discharge Information Instructions: Urinary Tract Infection, Adult Referrals: PCP,None [Primary Care Provider] - Forms: ED Department Discharge Care Plan Goals: Take antibiotic twice a day for 5 days. Continue with Pyridium for spasm, stay hydrated, and recheck in 2 to 3 days if not significant improvement. Return sooner if worsening such as fever, increased pain, or vomiting the medication. Sepsis Event Note - Evaluation Sepsis Screening Result: No Definite Risk - Focused Exam Vital Signs: Vital Signs Temp Pulse Resp BP Pulse Ox 05/28/19 14:23 98.5 F 108 H 20 121/75 98 05/28/19 14:18 98.5 F 108 H 20 121/75 98 Date Exam was Performed: 05/28/19 Time Exam was Performed: 15:07 - My Orders Last 24 Hours: My Active Orders 05/28/19 14:48 CULTURE URINE [RM] Stat - Assessment/Plan Last 24 Hours: My Active Orders 05/28/19 14:48 CULTURE URINE [] Stat
== END 2019-05-28 14:53 | disposition home or self-care (01) ==
LOC: JP.ED 14:08
DX: N30.90 Cystitis, unspecified without hematuria (principal); K21.9 Gastro-esophageal reflux disease without esophagitis; Z88.1 Allergy status to other antibiotic agents; Z88.2 Allergy status to sulfonamides; Z91.09 Other allergy status, other than to drugs and biological substances; Z79.899 Other long term (current) drug therapy; Z87.891 Personal history of nicotine dependence
CPT/HCPCS: 81001; 87086; 87088; 87186; 99283

== ENCOUNTER 2019-08-20 13:05 | Emergency (ER) | payer MEDICAID ==
[2019-08-20 13:24] VITALS: BP 126/78; PULSE 103
--- NOTE | 2019-08-20 13:36 | EDM.PDOC ---
ED HPI GENERAL MEDICAL PROBLEM - General Chief Complaint: Genitourinary Problem Stated Complaint: UTI Time Seen by Provider: 08/20/19 13:25 Source of Information: Reports: Patient, Old Records, RN History Limitations: Reports: No Limitations - History of Present Illness INITIAL COMMENTS - FREE TEXT/NARRATIVE: 48 yo female here with urinary infection sx's. Sx's began yesterday. No fever, flank pain or nausea. Sx's began as sacral pain yesterday, now includes dysuria and frequency. Onset: Gradual Onset Date: 08/19/19 Duration: Day(s): (1+), Getting Worse Location: Reports: Back (sacral), Pelvis (urethral) Quality: Reports: Burning Severity: Moderate Improves with: Reports: None Worsens with: Reports: Other (time) Context: Reports: Other (See HPI) Associated Symptoms: Denies: Fever/Chills, Nausea/Vomiting Treatments STONER OUT: Reports: Other (see below) (none) - Related Data Allergies Allergy/AdvReac Type Severity Reaction Status Date / Time azithromycin [From Zithromax] Allergy Cannot Verified 05/28/19 14:20 Remember erythromycin base Allergy Vomiting Verified 05/28/19 14:20 Sulfa (Sulfonamide Allergy Vaginitis Verified 05/28/19 14:20 Antibiotics) many outside allergies Allergy Difficulty Uncoded 05/28/19 14:20 Breathing Home Meds: Home Meds Fluconazole in NaCl,Iso-Osm [Fluconazole-Ns 200 mg/100 ml] 1 sprays INH BID 11/25 [History] Montelukast [Singulair] 10 mg CHEW BEDTIME 05/19/14 [History] Pseudoephedrine [Sudafed 12 Hour] 120 mg PO Q12H 05/19/14 [History] Cetirizine HCl [Zyrtec] 10 mg PO DAILY 06/06/14 [History] Multivitamin [Multi-Vitamin Daily] 1 tab PO DAILY 06/06/14 [History] Omeprazole 20 mg PO DAILY 12/14/15 [History] Tretinoin [Retin-A] 1 applic TP BEDTIME 10/05/16 [History] Fexofenadine/Pseudoephedrine [Tabitha-D 12 Hour] 1 tab PO Q6HR 05/28/19 [History ] Ciprofloxacin [Ciprofloxacin HCl] 250 mg PO Q12H #14 tablet 08/20/19 [Rx] Past Medical History - Past Health History Medical/Surgical History: Denies Medical/Surgical History HEENT History: Reports: Impaired Vision, Sinusitis, Other (See Below) Other HEENT History: environmental--seeds,grasses trees pets etc Respiratory History: Reports: Other (See Below) Other Respiratory History: Environmental allergies Gastrointestinal History: Reports: GERD Genitourinary History: Reports: UTI, Recurrent 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 ovarian cyst Neurological History: Reports: Migraines Dermatologic History: Reports: Other (See Below) Other Dermatologic History: mole removed chest and back - Infectious Disease History Infectious Disease History: Reports: Chicken Pox, Measles, Mumps - Past Surgical History Head Surgeries/Procedures: Reports: None HEENT Surgical History: Reports: Oral Surgery, Tonsillectomy Respiratory Surgical History: Reports: None GI Surgical History: Reports: Appendectomy Female Surgical History: Reports: Breast Reconstruction, Hysterectomy, Mastectomy, Oophorectomy Neurological Surgical History: Reports: None Dermatological Surgical History: Reports: Plastic Surgical Reconstruction/Repair Social & Family History - Family History OBGYN: Reports: Other (See Below) Other OBGYN Family History: ovaarian ca- mother - Tobacco Use Smoking Status *Q: Never Smoker - Caffeine Use Caffeine Use: Reports: Coffee - Recreational Drug Use Recreational Drug Use: No ED ROS GENERAL - Review of Systems Review Of Systems: See Below Constitutional: Reports: No Symptoms : Reports: Dysuria, Frequency. Denies: Flank Pain, Hematuria Musculoskeletal: Reports: Back Pain (sacral) Skin: Reports: No Symptoms Neurological: Reports: No Symptoms ED EXAM, RENAL/ - Physical Exam Exam: See Below Exam Limited By: No Limitations General Appearance: Alert, WD/WN, No Apparent Distress Eye Exam: Bilateral Eye: Normal Inspection Back Exam: No: CVA Tenderness (R), CVA Tenderness (L), Vertebral Tenderness Extremities: Normal Inspection Neurological: Alert, Oriented, CN II-XII Intact, Normal Cognition, No Motor/ Sensory Deficits Psychiatric: Normal Affect, Normal Mood Skin Exam: Warm, Dry, Intact, Normal Color, No Rash Lymphatic: No Adenopathy Course - Vital Signs Last Recorded V/S: Last Vital Signs Temp 35.9 C L 08/20/19 13:26 Pulse 103 H 08/20/19 13:26 Resp 16 08/20/19 13:26 BP 126/78 08/20/19 13:26 Pulse Ox 99 08/20/19 13:26 - Orders/Labs/Meds Orders: Active Orders 24 hr Category Date Time Status CULTURE URINE [RM] Stat Lab 08/20/19 13:35 Received Labs: Laboratory Tests 08/20/19 Range/Units 13:19 Urine Color Yellow (YELLOW) Urine Appearance Cloudy A (CLEAR) Urine pH 5.5 (5.0-8.0) Ur Specific [place] >= 1.030 (1.008-1.030) Urine Protein 30 H (NEGATIVE) mg/dL Urine Glucose (UA) Negative (NEGATIVE) mg/dL Urine Ketones Negative (NEGATIVE) mg/dL Urine Occult Blood Large H (NEGATIVE) Urine Nitrite Negative (NEGATIVE) Urine Bilirubin Negative (NEGATIVE) Urine Urobilinogen 0.2 (0.2-1.0) EU/dL Ur Leukocyte Esterase Moderate H (NEGATIVE) Urine RBC 50-75 H (0-5) Urine WBC 40-50 H (0-5) Ur Epithelial Cells Rare Amorphous Sediment Not seen Urine Bacteria Moderate Urine Mucus Few Departure - Departure Time of Disposition: 13:42 Disposition: Home, Self-Care 01 Condition: Good Clinical Impression: Cystitis - Discharge Information *PRESCRIPTION DRUG MONITORING PROGRAM REVIEWED*: Not Applicable *COPY OF PRESCRIPTION DRUG MONITORING REPORT IN PATIENT RONALDO: Not Applicable Prescriptions: Ciprofloxacin [Ciprofloxacin HCl] 250 mg PO Q12H #14 tablet Referrals: Delfino Oshea MD [Primary Care Provider] - Forms: ED Department Discharge Additional Instructions: Drink ample fluids. Take ciprofloxacin every 12 hrs until gone. Recheck with your primary if not markedly improved by 72hrs. Sooner if a fever develops. Take AZO per package instructions for your burning symptoms. Sepsis Event Note - Evaluation Sepsis Screening Result: Possible Sepsis Risk - Focused Exam Vital Signs: Vital Signs Temp Pulse Resp BP Pulse Ox 08/20/19 13:26 35.9 C L 103 H 16 126/78 99 08/20/19 13:22 35.9 C L 103 H 16 126/78 99 Date Exam was Performed: 08/20/19 Time Exam was Performed: 13:39 - My Orders Last 24 Hours: My Active Orders 08/20/19 13:35 CULTURE URINE [RM] Stat - Assessment/Plan Last 24 Hours: My Active Orders 08/20/19 13:35 CULTURE URINE [RM] Stat
== END 2019-08-20 13:47 | disposition home or self-care (01) ==
LOC: JP.ED 13:05
DX: N30.90 Cystitis, unspecified without hematuria (principal); Z88.1 Allergy status to other antibiotic agents; Z88.2 Allergy status to sulfonamides
CPT/HCPCS: 81001; 87086; 99283

== ENCOUNTER 2019-11-25 05:35 | Emergency (ER) | payer MEDICAID, OTHER ==
[2019-11-25] MEDS ORDERED: Ketorolac 60 MG/2 ML SDV IM ONE (06:12)
--- NOTE | 2019-11-25 06:15 | EDM.PDOC ---
<OfficerSamir - Last Filed: 11/25/19 06:13> ED HPI GENERAL MEDICAL PROBLEM - General Chief Complaint: Neck Problem Stated Complaint: NECK PAIN Time Seen by Provider: 11/25/19 06:08 Source of Information: Reports: Patient, RN Notes Reviewed History Limitations: Reports: No Limitations - History of Present Illness Onset: Sudden Onset Date: 11/21/19 Duration: Day(s):, Getting Worse Location: Reports: Neck Quality: Reports: Ache, Sharp Severity: Moderate Improves with: Reports: Medication Worsens with: Reports: None Associated Symptoms: Reports: No Other Symptoms Treatments INSURANCE FOLLOW UP SPECIALIST: Reports: Other (see below) (Bexsero) right sided neck pain Pain Score (Numeric/FACES): 8 - Related Data Allergies Allergy/AdvReac Type Severity Reaction Status Date / Time azithromycin [From Zithromax] Allergy Cannot Verified 11/25/19 05:49 Remember erythromycin base Allergy Vomiting Verified 11/25/19 05:49 Sulfa (Sulfonamide Allergy Vaginitis Verified 11/25/19 05:49 Antibiotics) many outside allergies Allergy Difficulty Uncoded 11/25/19 05:49 Breathing Home Meds: Home Meds Fluconazole in NaCl,Iso-Osm [Fluconazole-Ns 200 mg/100 ml] 1 sprays INH BID 11/25 [History] Montelukast [Singulair] 10 mg PO BEDTIME 05/19/14 [History] Pseudoephedrine [Sudafed 12 Hour] 120 mg PO Q12H 05/19/14 [History] Multivitamin [Multi-Vitamin Daily] 1 tab PO DAILY 06/06/14 [History] Omeprazole 20 mg PO DAILY 12/14/15 [History] Tretinoin [Retin-A] 1 applic TP BEDTIME 10/05/16 [History] Fexofenadine/Pseudoephedrine [Tabitha-D 12 Hour] 1 tab PO Q6HR 05/28/19 [History ] Past Medical History HEENT History: Reports: Impaired Vision, Sinusitis, Other (See Below) Other HEENT History: environmental--seeds,grasses trees pets etc Respiratory History: Reports: Other (See Below) Other Respiratory History: Environmental allergies Gastrointestinal History: Reports: GERD Genitourinary History: Reports: UTI, Recurrent 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 ovarian cyst Neurological History: Reports: Migraines Dermatologic History: Reports: Other (See Below) Other Dermatologic History: mole removed chest and back - Infectious Disease History Infectious Disease History: Reports: Chicken Pox - Past Surgical History Head Surgeries/Procedures: Reports: None HEENT Surgical History: Reports: Oral Surgery, Tonsillectomy Respiratory Surgical History: Reports: None GI Surgical History: Reports: Appendectomy Female Surgical History: Reports: Breast Implant, Breast Reconstruction, Hysterectomy, Mastectomy, Oophorectomy Neurological Surgical History: Reports: None Dermatological Surgical History: Reports: Plastic Surgical Reconstruction/Repair Social & Family History - Family History OBGYN: Reports: Other (See Below) Other OBGYN Family History: ovaarian ca- mother - Tobacco Use Smoking Status *Q: Never Smoker - Caffeine Use Caffeine Use: Reports: Coffee - Recreational Drug Use Recreational Drug Use: No ED ROS GENERAL - Review of Systems Review Of Systems: See Below Constitutional: Reports: No Symptoms Respiratory: Reports: No Symptoms Cardiovascular: Reports: No Symptoms GI/Abdominal: Reports: No Symptoms Musculoskeletal: Reports: Neck Pain ED EXAM, UPPER BACK/NECK PAIN - Physical Exam Exam: See Below Exam Limited By: No Limitations General Appearance: Alert, WD/WN, No Apparent Distress Throat/Mouth Exam: No Airway Compromise Head Exam: Atraumatic, Normocephalic Neck Exam: Normal Alignment, Limited Range of Motion, Muscle Spasm, Painful Range of Motion, Paraspinous Muscle Tender, Stiff Neck, Tenderness, Tender Lateral. No: Spinous Processes Tender, Tender Midline Nexus Criteria: No: Posterior, Midline Cervical Tenderness, Evidence of Intoxication, Altered Level of Consciousness, Focal Neurological Deficit, Painful Distraction Injuries Cardiovascular/Respiratory: No Respiratory Distress Course - Vital Signs Last Recorded V/S: Last Vital Signs Temp 36.3 C 11/25/19 05:54 Pulse 69 11/25/19 07:07 Resp 12 11/25/19 07:37 BP 101/51 L 11/25/19 07:37 Pulse Ox 99 11/25/19 07:37 - Orders/Labs/Meds Orders: Active Orders 24 hr Category Date Time Status Peripheral IV Care [RC] . DIRECTED Care 11/25/19 06:35 Active Sodium Chloride 0.9% [Normal Saline] 1,000 ml Med 11/25/19 06:45 Active IV ASDIRECTED Sodium Chloride 0.9% [Saline Flush] Med 11/25/19 06:35 Active 10 ml FLUSH ASDIRECTED PRN Peripheral IV Insertion Adult [OM.PC] Urgent Oth 11/25/19 06:35 Ordered Medication Orders Sodium Chloride (Normal Saline) 1,000 mls @ 999 mls/hr IV ASDIRECTED PATT Last Admin: 11/25/19 06:40 Dose: 999 mls/hr Sodium Chloride (Saline Flush) 10 ml FLUSH ASDIRECTED PRN PRN Reason: Keep Vein Open Last Admin: 11/25/19 06:41 Dose: 10 ml Meds: Medications Generic Name Dose Route Start Last Admin Trade Name Freq PRN Reason Stop Dose Admin Sodium Chloride 1,000 mls @ 999 mls/hr 11/25/19 06:45 11/25/19 06:40 Normal Saline IV 999 mls/hr ASDIRECTED PATT Administration Sodium Chloride 10 ml 11/25/19 06:35 11/25/19 06:41 Saline Flush FLUSH 10 ml ASDIRECTED PRN Administration Keep Vein Open Discontinued Medications Generic Name Dose Route Start Last Admin Trade Name Freq PRN Reason Stop Dose Admin Cyclobenzaprine HCl 10 mg 11/25/19 06:12 11/25/19 06:58 Flexeril PO 11/25/19 06:13 Not Given ONETIME ONE Ketorolac Tromethamine 60 mg 11/25/19 06:12 11/25/19 06:22 Toradol IM 11/25/19 06:13 60 mg ONETIME ONE Administration Departure - Departure Disposition: Home, Self-Care 01 Clinical Impression: Neck muscle strain Qualifiers: Encounter type: initial encounter Qualified Code(s): S16.1XXA - Strain of muscle, fascia and tendon at neck level, initial encounter - Discharge Information Referrals: Delfino Oshea MD [Primary Care Provider] - Forms: ED Department Discharge Additional Instructions: Cold packs to painful area 20 minutes off and on as discussed. Use strain/ counterstrain neck exercises as demonstrated. Recommend ibuprofen 600-800 mg 3 times daily for the next 5 days on a regular basis. Follow-up with primary care next week if still having difficulty or return to this department if feeling worse in anyway. Sepsis Event Note (ED) - Evaluation Sepsis Screening Result: No Definite Risk - Focused Exam Vital Signs: Vital Signs Temp Pulse Resp BP Pulse Ox 11/25/19 07:37 12 101/51 L 99 11/25/19 07:07 69 12 100/53 L 100 11/25/19 06:41 100 15 91/46 L 100 11/25/19 06:38 80 15 80/40 L 98 11/25/19 05:54 36.3 C 96 15 113/77 97 11/25/19 05:53 36.3 C 96 15 113/77 97 <Dylon Velázquez - Last Filed: 11/25/19 08:25> Course - Re-Assessments/Exams Free Text/Narrative Re-Assessment/Exam: 11/25/19 08:22 After IV fluids and rest, the patient now feels better. She was able to eat some food and did not have any upset stomach. It sounds like she had a vasovagal type episode probably made worse by her dose of cyclobenzaprine. I recommend ibuprofen 600-800 mg 3 times a day regularly over the next 5 days. If she chooses to use cyclobenzaprine I would recommend only a half dose similar to what she did last night but she may want to avoid it altogether. Cold packs to painful area 20 minutes off and on. Strain/counterstrain neck exercises were reviewed with the patient and I recommend using those as well along with maintaining flexibility of the neck muscles. Reasons to return to emergency department reviewed. Departure - Departure Time of Disposition: 08:23 Condition: Good - Discharge Information *PRESCRIPTION DRUG MONITORING PROGRAM REVIEWED*: Not Applicable *COPY OF PRESCRIPTION DRUG MONITORING REPORT IN PATIENT RONALDO: Not Applicable
[2019-11-25] MEDS: Cyclobenzaprine 10 MG Tab PO ONE ×2 (06:22→06:58)
[2019-11-25] MEDS ORDERED: Sodium Chloride 0.9% 10 ML Syringe FLUSH PRN (06:35)
[2019-11-25] MEDS ORDERED: Sodium Chloride 0.9% 1,000 ML IV SCH (06:45)
[2019-11-25 08:23] VITALS: BP 108/67; PULSE 83
== END 2019-11-25 08:38 | disposition home or self-care (01) ==
LOC: JP.ED 05:35
DX: S16.1XXA Strain of muscle, fascia and tendon at neck level, initial encounter (principal); K21.9 Gastro-esophageal reflux disease without esophagitis; Z88.1 Allergy status to other antibiotic agents; Z88.2 Allergy status to sulfonamides; Z91.09 Other allergy status, other than to drugs and biological substances; Z79.899 Other long term (current) drug therapy
CPT/HCPCS: 96372; 99283; J1885; J7030; A9270-GY

== ENCOUNTER 2020-03-02 15:23 | Emergency (ER) | payer MEDICAID | END 2020-03-02 15:49 | disposition left against medical advice (07) | LOC: JP.ED 15:23 | DX: Z53.21 Procedure and treatment not carried out due to patient leaving prior to being seen by health care provider (principal) ==

== ENCOUNTER 2020-11-20 18:35 | Emergency (ER) | payer MEDICAID | END 2020-11-20 18:50 | disposition left against medical advice (07) | LOC: JP.ED 18:35 | DX: Z53.21 Procedure and treatment not carried out due to patient leaving prior to being seen by health care provider (principal) ==

== ENCOUNTER 2020-11-28 00:59 | Emergency (ER) | payer MEDICAID ==
[2020-11-28 01:12] VITALS: BP 128/80; PULSE 87
--- NOTE | 2020-11-28 01:32 | EDM.PDOC ---
ED HPI GENERAL MEDICAL PROBLEM - General Chief Complaint: ENT Problem Stated Complaint: POST NELSY EYE PAIN Time Seen by Provider: 11/28/20 01:24 Source of Information: Reports: Patient History Limitations: Reports: No Limitations - History of Present Illness INITIAL COMMENTS - FREE TEXT/NARRATIVE: Patient presents emergency room today secondary to post cataract eye pain that she had left eye cataract surgery yesterday morning Wednesday in preop she was given a numbing drop as well as a numbing patch was placed this patch had to be removed early secondary to pain that she was experiencing she states that whenever she went into the OR and Dr. Marcum took a look at her eye I felt that she may have a little cornea scratch procedure was completed without any incident and patient was discharged home as per previous cataract surgery on the right eye she states that tonight she started noticing increased tearing and pain scratchy sensation of her left eye it is patched took 2 extra strength Tylenol but it did not seem to help she states she called [facility] and they recommended that she come into the emergency room to have an evaluation completed she opted to come to [place] instead she has not attempted to reach her patient portal concierge or call any of their after-hours numbers. He states that patch is in place and not due to be removed until 8:00 this morning in which at that time she is to start eyedrops of prednisolone and ofloxacin ophthalmic's also states that she has a follow-up appointment this morning at 1030 with her eye doctor here in [place] PMH/Meds--reviewed in EMR left eye Pain Score (Numeric/FACES): 8 - Related Data Allergies Allergy/AdvReac Type Severity Reaction Status Date / Time azithromycin [From Zithromax] Allergy Cannot Verified 11/25/19 05:49 Remember erythromycin base Allergy Vomiting Verified 11/25/19 05:49 Sulfa (Sulfonamide Allergy Vaginitis Verified 11/25/19 05:49 Antibiotics) many outside allergies Allergy Difficulty Uncoded 11/25/19 05:49 Breathing Home Meds: Home Meds Fluconazole in NaCl,Iso-Osm [Fluconazole-Ns 200 mg/100 ml] 1 sprays INH BID 05/19/14 [History] Montelukast [Singulair] 10 mg PO BEDTIME 05/19/14 [History] Pseudoephedrine [Sudafed 12 Hour] 120 mg PO Q12H 05/19/14 [History] Multivitamin [Multi-Vitamin Daily] 1 tab PO DAILY 06/06/14 [History] Omeprazole 20 mg PO DAILY 12/14/15 [History] Tretinoin [Retin-A] 1 applic TP BEDTIME 10/05/16 [History] Fexofenadine/Pseudoephedrine [Tabitha-D 12 Hour] 1 tab PO Q6HR 05/28/19 [History] Past Medical History - Past Health History Medical/Surgical History: Denies Medical/Surgical History HEENT History: Reports: Impaired Vision, Sinusitis, Other (See Below) Other HEENT History: environmental--seeds,grasses trees pets etc Respiratory History: Reports: Other (See Below) Other Respiratory History: Environmental allergies Gastrointestinal History: Reports: GERD Genitourinary History: Reports: UTI, Recurrent 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 ovarian cyst Neurological History: Reports: Migraines Dermatologic History: Reports: Other (See Below) Other Dermatologic History: mole removed chest and back - Infectious Disease History Infectious Disease History: Reports: Chicken Pox - Past Surgical History Head Surgeries/Procedures: Reports: None HEENT Surgical History: Reports: Cataract Surgery, Oral Surgery, Tonsillectomy Respiratory Surgical History: Reports: None GI Surgical History: Reports: Appendectomy Female Surgical History: Reports: Breast Implant, Breast Reconstruction, Hysterectomy, Mastectomy, Oophorectomy Neurological Surgical History: Reports: None Dermatological Surgical History: Reports: Plastic Surgical Reconstruction/Repair Social & Family History - Family History OBGYN: Reports: Other (See Below) Other OBGYN Family History: ovaarian ca- mother - Caffeine Use Caffeine Use: Reports: Coffee ED ROS ENT - Review of Systems Review Of Systems: Comprehensive ROS is negative, except as noted in HPI. HEENT: Reports: Eye Pain ED EXAM, ENT - Physical Exam Exam: See Below Exam Limited By: No Limitations General Appearance: Alert, WD/WN, Mild Distress (left eye pain) Eye Exam: Left Eye: Other (left eye has postop patch in place, not due to remove until this morning at 0800) Ears: Normal External Exam, Hearing Grossly Normal Nose: Normal Inspection Mouth/Throat: Normal Inspection Head: Atraumatic, Normocephalic Neck: Normal Inspection, Supple, Full Range of Motion Respiratory/Chest: No Respiratory Distress, Lungs Clear, Normal Breath Sounds Cardiovascular: Regular Rate, Rhythm, No Murmur (Female) Exam: Deferred Rectal (Female) Exam: Deferred Extremities: Normal Range of Motion, Normal Capillary Refill Neurological: Alert, Oriented, Normal Cognition, Normal Gait, No Motor/Sensory Deficits Psychiatric: Normal Affect, Normal Mood Skin: Warm, Dry, Intact, Normal Color Course - Vital Signs Text/Narrative:: Patient states that she came to the ER because she could not read paperwork in order to call after-hours number; I offered to call after-hours number to inquire about recommendations for her--call was placed to Dr. Marcum's office number on paperwork provided to her for discharge it went to an answering machine that recommended patient call after-hours numbers for [facility] or [place] presumably these are the ERs at those hospitals in [place] I then went back into the room and discussed with patient the results of my call attempt. I have offered patient pain medication in order to help with discomfort until she is able to remove her patch in the morning at 8 AM we will start provided eyedrops of prednisone and ofloxacin but she is declined she states that pain medication makes her nauseous. At this point she states she will go home thus waiting the couple of hours until she is able to remove her postop eye patch and start utilization of drops as prescribed. She also has noted follow-up this morning at 1030 with her eye doctor here in [place]. At this time per patient's request discharge with postoperative instructions and follow-up as already planned/instructed Last Recorded V/S: Last Vital Signs Temp 97.6 F 11/28/20 01:12 Pulse 87 11/28/20 01:12 Resp 16 11/28/20 01:12 BP 128/80 11/28/20 01:12 Pulse Ox 100 11/28/20 01:12 Departure - Departure Time of Disposition: 01:40 Disposition: Home, Self-Care 01 Clinical Impression: Acute left eye pain, Status post corneal transplant - Discharge Information *PRESCRIPTION DRUG MONITORING PROGRAM REVIEWED*: Not Applicable *COPY OF PRESCRIPTION DRUG MONITORING REPORT IN PATIENT RONALDO: Not Applicable Referrals: PCP,None [Primary Care Provider] - Additional Instructions: Continue with postoperative cataract care as instructed by your patient portal concierge Dr. Marcum that includes removal of eye patch in the morning at 8 AM followed by beginning of eyedrops ofloxacin and prednisolone Keep follow-up appointment this morning at 1030 with eye doctor here in [place] as already scheduled Sepsis Event Note (ED) - Evaluation Sepsis Screening Result: No Definite Risk - Focused Exam Vital Signs: Vital Signs Temp Pulse Resp BP Pulse Ox 11/28/20 01:12 97.6 F 87 16 128/80 100 11/28/20 01:10 97.6 F 87 16 128/80 100
== END 2020-11-28 01:50 | disposition home or self-care (01) ==
LOC: JP.ED 00:59
DX: H57.12 Ocular pain, left eye (principal); K21.9 Gastro-esophageal reflux disease without esophagitis; Z94.7 Corneal transplant status; Z88.1 Allergy status to other antibiotic agents; Z88.8 Allergy status to other drugs, medicaments and biological substances; Z79.899 Other long term (current) drug therapy
CPT/HCPCS: 99282

== ENCOUNTER 2022-06-08 09:55 | Emergency (ER) | payer MEDICAID ==
[2022-06-08 10:11] VITALS: PULSE 103
[2022-06-08 10:25] VITALS: BP 94/60
[2022-06-08 10:49] LABS: CORONAVIRUS COVID-19 NAA POSITIVE (NEGATIVE)
== END 2022-06-08 11:13 | disposition home or self-care (01) ==
LOC: JP.ED 09:55
DX: U07.1 COVID-19 (principal); Z88.1 Allergy status to other antibiotic agents; Z88.2 Allergy status to sulfonamides; Z87.891 Personal history of nicotine dependence
CPT/HCPCS: 0241U; 99283

== ENCOUNTER 2023-04-11 20:16 | Emergency (ER) | payer MEDICAID ==
[2023-04-11 21:00] VITALS: BP 125/94; PULSE 83
== END 2023-04-11 21:42 | disposition home or self-care (01) ==
LOC: JP.ED 20:16
DX: J32.9 Chronic sinusitis, unspecified (principal); K21.9 Gastro-esophageal reflux disease without esophagitis; Z90.49 Acquired absence of other specified parts of digestive tract; Z90.710 Acquired absence of both cervix and uterus; Z79.899 Other long term (current) drug therapy; Z88.1 Allergy status to other antibiotic agents; Z88.2 Allergy status to sulfonamides
CPT/HCPCS: 99283